=== PATIENT | female | born 1940 | race Caucasian/White ===

== ENCOUNTER 2019-02-16 09:08 | Emergency (ER) | payer MEDICARE, BC ==
[2019-02-16 09:21] VITALS: BP 142/55; PULSE 67
[2019-02-16] MEDS ORDERED: Sodium Chloride 0.9% 10 ML Syringe FLUSH PRN (09:27)
[2019-02-16] MEDS ORDERED: HYDROmorphone 0.5 MG/0.5 ML Syringe IVPUSH ONE ×2 (09:29→09:53)
--- NOTE | 2019-02-16 09:41 | EDM.PDOC ---
ED HPI GENERAL MEDICAL PROBLEM - General Chief Complaint: Upper Extremity Injury/Pain Stated Complaint: MULTI INJURY Time Seen by Provider: 02/16/19 09:19 Source of Information: Reports: Patient, Family History Limitations: Reports: No Limitations - History of Present Illness INITIAL COMMENTS - FREE TEXT/NARRATIVE: The patient got kicked by a horse in the left knee and then she fell and hit her head and hurt her right wrist. She has pain to her right wrist with deformity and pain to her left lateral knee. She also has a headache. She had no LOC. She has no neck pain. She has no chest pain, abdominal pain, nausea or vomiting. She is not on any blood thinners. Onset: Sudden Duration: Minutes: Location: Reports: Head, Upper Extremity, Right (wrist), Lower Extremity, Left ( knee) Quality: Reports: Sharp Severity: Moderate Improves with: Reports: Immobilization Worsens with: Reports: Movement Context: Reports: Trauma (Kicked by a horse in the left knee and fell and hit her head and hurt her wrist) Associated Symptoms: Reports: Headaches. Denies: Chest Pain, Cough, Fever/ Chills, Nausea/Vomiting, Shortness of Breath Right Wrist Pain Score (Numeric/FACES): 10 Left Lower Posterior Leg Pain Score (Numeric/FACES): 8 - Related Data Allergies Allergy/AdvReac Type Severity Reaction Status Date / Time amitriptyline AdvReac Hyperactivi Verified 02/16/19 09:13 ty aspirin AdvReac Tachycardia Verified 02/16/19 09:13 propoxyphene HCl AdvReac Hyperactivi Verified 02/16/19 09:13 [From Manohar] ty Home Meds: Home Meds Calcium Carbonate [Calcium] 600 mg PO DAILY 04/07/15 [History] Magnesium 500 mg PO DAILY 04/07/15 [History] Ubidecarenone [Co Q-10] 10 mg PO DAILY 04/07/15 [History] traMADol [Ultram] 50 mg PO Q6H PRN #20 tab 02/16/19 [Rx] Past Medical History Other Gastrointestinal History: colon resection Oncologic (Cancer) History: Reports: Breast, Colon, Uterine - Past Surgical History HEENT Surgical History: Reports: Cataract Surgery GI Surgical History: Reports: Colonoscopy Female Surgical History: Reports: Hysterectomy, Mastectomy Social & Family History - Tobacco Use Smoking Status *Q: Never Smoker - Caffeine Use Caffeine Use: Reports: Coffee - Recreational Drug Use Recreational Drug Use: No Review of Systems - Review of Systems Review Of Systems: See Below Constitutional: Reports: No Symptoms Eyes: Reports: No Symptoms Ears: Reports: No Symptoms Nose: Reports: No Symptoms Mouth/Throat: Reports: No Symptoms Respiratory: Reports: No Symptoms Cardiovascular: Reports: No Symptoms GI/Abdominal: Reports: No Symptoms Genitourinary: Reports: No Symptoms Musculoskeletal: Reports: Other (Pain to the left knee and right wrist) Neurological: Reports: Headache ED EXAM, GENERAL - Physical Exam Exam: See Below Exam Limited By: No Limitations General Appearance: Alert, No Apparent Distress Ears: Normal External Exam Nose: Normal Inspection Head: Atraumatic, Normocephalic Neck: Normal Inspection, Supple, Non-Tender Respiratory/Chest: No Respiratory Distress, Lungs Clear, Normal Breath Sounds Cardiovascular: Regular Rate, Rhythm, No Edema, No Murmur GI/Abdominal: Soft, Non-Tender, No Organomegaly, No Mass Back Exam: Normal Inspection Extremities: Other (Pain upon palpation with edema and ecchymosis to the left lateral knee. Pain upon palpation with slight deformity to the right wrist. Good sensation and pulses idistally.) ED TRAUMA EXTREMITY PROCEDURES - Joint Reduction Site: Other (right wrist) Sedation: Hematoma/Fracture Block Local Anesthesia - Lidocaine (Xylocaine): 1% Plain Local Anesthetic Volume: 2cc Pre-Procedure NV Status: Normal Post-Procedure NV Status: Normal Technique: Traction/Counter Traction Number of Attempts: 1 Post-Reduction Imaging: Completely Reduced Joint Reduction Complications: No - Splinting Right Upper Extremity Splint Site: Right wrist Pre-Procedure NV Status: Normal Post-Procedure NV Status: Normal Splint Material: Fiberglass Splint Design: Volar Applied & Form Fitted By: Provider Provider Post-Splint Application NV Check: NV Status Normal, Good Position Complications: No Course - Vital Signs Last Recorded V/S: Last Vital Signs Temp 97.4 F 02/16/19 09:14 Pulse 67 02/16/19 09:14 Resp 14 02/16/19 09:14 BP 142/55 H 02/16/19 09:14 Pulse Ox 100 02/16/19 09:14 - Orders/Labs/Meds Orders: Active Orders 24 hr Category Date Time Status Cardiac Monitoring [RC] . DIRECTED Care 02/16/19 09:27 Active Peripheral IV Care [RC] . DIRECTED Care 02/16/19 09:28 Active Sodium Chloride 0.9% [Saline Flush] Med 02/16/19 09:27 Active 10 ml FLUSH ASDIRECTED PRN Durable Medical Equipment for Discharge [DME for Oth 02/16/19 12:09 Ordered Discharge] [COMM] Stat Peripheral IV Insertion Adult [OM.PC] Stat Oth 02/16/19 09:27 Ordered Medication Orders Sodium Chloride (Saline Flush) 10 ml FLUSH ASDIRECTED PRN PRN Reason: Keep Vein Open Last Admin: 02/16/19 09:34 Dose: 10 ml Labs: Laboratory Tests 02/16/19 02/16/19 Range/Units 10:28 10:28 WBC 12.45 H (3.98-10.04) K/mm3 RBC 4.50 (3.98-5.22) M/mm3 Hgb 13.2 (11.2-15.7) gm/L Hct 39.2 (34.1-44.9) % MCV 87.1 (79.4-94.8) fl MCH 29.3 (25.6-32.2) pg MCHC 33.7 (32.2-35.5) g/dl RDW Std Deviation 39.2 (36.4-46.3) fL Plt Count 209 (182-369) K/mm3 MPV 10.1 (9.4-12.3) fl Neut % (Auto) 85.1 H (34.0-71.1) % Lymph % (Auto) 9.7 L (19.3-51.7) % [place] % (Auto) 4.6 L (4.7-12.5) % Eos % (Auto) 0.2 L (0.7-5.8) Baso % (Auto) 0.2 (0.1-1.2) % Neut # (Auto) 10.61 H (1.56-6.13) K/mm3 Lymph # (Auto) 1.21 (1.18-3.74) K/mm3 [place] # (Auto) 0.57 H (0.24-0.36) K/mm3 Eos # (Auto) 0.02 L (0.04-0.36) K/mm3 Baso # (Auto) 0.02 (0.01-0.08) K/mm3 Manual Slide Review Abnormal smear Sodium 140 (136-145) mEq/L Potassium 3.8 (3.5-5.1) mEq/L Chloride 104 (98-107) mEq/L Carbon Dioxide 24 (21-32) mEq/L Anion Gap 15.8 H (5-15) BUN 19 H (7-18) mg/dL Creatinine 0.9 (0.55-1.02) mg/dL Est Cr Clr Drug Dosing 44.49 mL/min Estimated GFR (MDRD) > 60 (>60) mL/min BUN/Creatinine Ratio 21.1 H (14-18) Glucose 129 H (83-115) mg/dL Calcium 9.2 (8.5-10.1) mg/dL Total Bilirubin 0.5 (0.2-1.0) mg/dL AST 24 (15-37) U/L ALT 26 (14-59) U/L Alkaline Phosphatase 97 (46-116) U/L Total Protein 6.8 (6.4-8.2) g/dl Albumin 3.8 (3.4-5.0) g/dl Globulin 3.0 gm/dL Albumin/Globulin Ratio 1.3 (1-2) Lipase 94 (73-393) U/L Meds: Medications Generic Name Dose Route Start Last Admin Trade Name Sammy PRN Reason Stop Dose Admin Sodium Chloride 10 ml 02/16/19 09:27 02/16/19 09:34 Saline Flush FLUSH 10 ml ASDIRECTED PRN Administration Keep Vein Open Discontinued Medications Generic Name Dose Route Start Last Admin Trade Name Sammy PRN Reason Stop Dose Admin Fentanyl 100 mcg 02/16/19 10:32 02/16/19 12:13 Sublimaze IVPUSH 02/16/19 10:33 Not Given ONETIME ONE Hydromorphone HCl 0.5 mg 02/16/19 09:29 02/16/19 09:33 Dilaudid IVPUSH 02/16/19 09:30 0.5 mg ONETIME ONE Administration Hydromorphone HCl 0.5 mg 02/16/19 09:53 02/16/19 10:11 Dilaudid IVPUSH 02/16/19 09:54 0.5 mg ONETIME ONE Administration Lidocaine HCl 10 ml 02/16/19 10:31 02/16/19 11:49 Xylocaine 1% INJECT 02/16/19 10:32 10 ml ONETIME ONE Administration Metoclopramide HCl 10 mg 02/16/19 11:35 02/16/19 11:43 Reglan IVPUSH 02/16/19 11:36 10 mg ONETIME ONE Administration Midazolam HCl 2 mg 02/16/19 10:31 02/16/19 11:50 Versed 1 Mg/Ml IVPUSH 02/16/19 10:32 2 mg ONETIME ONE Administration Ondansetron HCl 4 mg 02/16/19 10:46 02/16/19 10:49 Zofran IVPUSH 02/16/19 10:47 4 mg ONETIME ONE Administration Ondansetron HCl Confirm 02/16/19 10:48 02/16/19 10:52 Zofran Administered 02/16/19 10:49 Not Given Dose 4 mg .ROUTE .[facility] ONE - Re-Assessments/Exams Free Text/Narrative Re-Assessment/Exam: 02/16/19 09:41 I ordered an IV saline lock, dilaudid 0.5mg IV, labs, CT of her head, x-ray of her right wrist and left knee. 02/16/19 12:41 His WBC was elevated at 12.45. Her CT looks good. Her x-ray of the knee shows no fracture. The x-ray of her wrist shows a distal radius fracture. I did give her some more dilaudid for the pain and some reglan for nausea. I gave her some versed for sedation for reducing her fracture. 02/16/19 12:46 I put a splint on her right wrist and a knee immobilizer on her left knee. I will discharge her home with follow up with Dr Cutler. Departure - Departure Time of Disposition: 12:50 Disposition: Home, Self-Care 01 Condition: Good Clinical Impression: Contusion of left leg Qualifiers: Encounter type: initial encounter Qualified Code(s): S80.12XA - Contusion of left lower leg, initial encounter Fracture of right distal radius Qualifiers: Encounter type: initial encounter Fracture type: closed Fracture morphology: other fracture Qualified Code(s): S52.591A - Other fractures of lower end of right radius, initial encounter for closed fracture Fall Qualifiers: Encounter type: initial encounter Qualified Code(s): W19.XXXA - Unspecified fall, initial encounter Head injury Qualifiers: Encounter type: initial encounter Qualified Code(s): S09.90XA - Unspecified injury of head, initial encounter - Discharge Information *PRESCRIPTION DRUG MONITORING PROGRAM REVIEWED*: No *COPY OF PRESCRIPTION DRUG MONITORING REPORT IN PATIENT KEY: No Prescriptions: traMADol [Ultram] 50 mg PO Q6H PRN #20 tab PRN Reason: Pain Referrals: PCP,Unknown [Ordering Only Provider] - Jason Cutler MD [Physician] - 1 Week Forms: ED Department Discharge Additional Instructions: Ice the areas that hurt for 15 minutes 3 times per day for 2 days. Try to elevate your arm above your heart as much as you can for 2 days. Take tylenol or motrin for pain. If that does not help, try the ultram. Please return if you are worse. Follow up with Dr Cutler within a week. - My Orders Last 24 Hours: My Active Orders 02/16/19 09:27 Cardiac Monitoring [RC] . DIRECTED Sodium Chloride 0.9% [Saline Flush] 10 ml FLUSH ASDIRECTED PRN Peripheral IV Insertion Adult [OM.PC] Stat 02/16/19 09:28 Peripheral IV Care [RC] . DIRECTED 02/16/19 12:09 Durable Medical Equipment for Discharge [DME for Discharge] [COMM] Stat - Assessment/Plan Last 24 Hours: My Active Orders 02/16/19 09:27 Cardiac Monitoring [RC] . DIRECTED Sodium Chloride 0.9% [Saline Flush] 10 ml FLUSH ASDIRECTED PRN Peripheral IV Insertion Adult [OM.PC] Stat 02/16/19 09:28 Peripheral IV Care [RC] . DIRECTED 02/16/19 12:09 Durable Medical Equipment for Discharge [DME for Discharge] [COMM] Stat
[2019-02-16] MEDS ORDERED: Lidocaine 1% 10 ML MDV INJECT ONE (10:31)
[2019-02-16] MEDS ORDERED: Midazolam 1 MG/ML 2 ML SDV IVPUSH ONE (10:31)
[2019-02-16] MEDS ORDERED: fentaNYL 100 MCG/2 ML SDV IVPUSH ONE (10:32)
--- NOTE | 2019-02-16 10:34 | CT ---
Head CT Technique: Multiple axial sections through the brain were obtained. Intravenous contrast was not utilized. Comparison: No prior intracranial imaging is available. Findings: Ventricles along with basal cisterns and sulci over the convexities are mildly prominent. Very minimal diminished density is noted within portions of the periventricular white matter compatible with minimal small vessel ischemic demyelination change. No evidence of intracranial hemorrhage. No midline shift or mass effect is seen. Bone window settings were reviewed which shows no acute calvarial abnormality. Visualized mastoid and visualized paranasal sinuses show nothing acute. Impression: 1. Minimal senescent change. 2. Nothing acute is appreciated on noncontrast head CT exam. Diagnostic code #2
[2019-02-16] MEDS ORDERED: Ondansetron 4 MG/2 ML SDV IVPUSH ONE (10:46)
[2019-02-16] MEDS ORDERED: Ondansetron 4 MG/2 ML SDV ONE (10:48)
[2019-02-16] MEDS ORDERED: Metoclopramide 10 MG/2 ML SDV IVPUSH ONE (11:35)
--- NOTE | 2019-02-16 12:23 | CR ---
Right wrist: Four views of the right wrist were obtained. Comparison: No previous wrist exam. Distal radial fracture is seen with articular extension. Posterior impaction is seen with dorsal tilt of the distal radial articular margin. Distal ulna is intact. No additional fracture or other bony abnormality is seen. Soft tissue swelling is present. Impression: 1. Impacted distal right radial fracture with articular extension. 2. Soft tissue swelling. Diagnostic code #3
--- NOTE | 2019-02-16 12:23 | CR ---
Addendum: Exam was mismarked as right knee. This is a left knee exam. Other portions of the dictation remain the same. --- Addendum1 above dictated on [02/16/2019 12:24] by [Jane Laboy, Norbert Restrepo] --- --- Addendum1 above signed on [02/16/2019 13:00] by [Jane Laboy Hilton J.] --- --- Original report below dictated on [02/16/2019 10:56] by [Jane Laboy, Norbert Restrepo] --- --- Original report below signed on [02/16/2019 12:20] by [Jane Laboy Hilton J.] --- Right knee: Four views of the right knee were obtained. Comparison: No previous knee exam. Medial and lateral joint compartments are maintained in height. Soft tissue swelling is noted. 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 No joint effusion is seen. No acute fracture or other bony abnormality is identified. Mild vascular calcification is seen. Impression: 1. Soft tissue swelling. Other findings believed to be incidental. 2. No acute bony abnormality is identified. Diagnostic code #2 --- Addendum1 signed ---
--- NOTE | 2019-02-16 12:26 | CR ---
Right wrist: Two views of the right wrist were obtained. Comparison: Previous right wrist exam performed earlier on the same day. Less posterior impaction is seen when compared to prior study. Mild dorsal tilt of the distal radial articular margin remains. Soft tissue swelling is seen. Impression: 1. Improved alignment of previously impacted distal right radial fracture as noted above. 2. Soft tissue swelling remains. Diagnostic code #2
== END 2019-02-16 13:10 | disposition home or self-care (01) ==
LOC: JD.ED 09:08
DX: S52.591A Other fractures of lower end of right radius, initial encounter for closed fracture (principal); S09.90XA Unspecified injury of head, initial encounter; S80.12XA Contusion of left lower leg, initial encounter; Z88.6 Allergy status to analgesic agent; Z88.8 Allergy status to other drugs, medicaments and biological substances; W55.12XA Struck by horse, initial encounter
CPT/HCPCS: 25605; 36415; 70450; 73100; 73110; 73564; 80053; 83690; 85025; 96374; 96375; 96376; 99284; J1170; J2001; J2250; J2405; J2765; 29125; 99152; 99153

== ENCOUNTER 2019-02-24 06:00 | Day surgery (SDC) | payer MEDICARE, BC ==
[~2019-02-24 06:00] MED LIST: Lactated Ringers 1,000 ML IV SCH; Lidocaine 1%/Sod Bicarbonate in NS 8.4% 1 ML Syringe IDERM PRN; Scopolamine 1.5 MG Transdermal Patch TRDERM PRN; Sodium Chloride 0.9% 10 ML Syringe FLUSH PRN
[2019-02-24] MEDS ORDERED: Propofol 200 MG/20 ML SDV ONE (06:36)
[2019-02-24] MEDS ORDERED: Ondansetron 4 MG/2 ML SDV ONE (06:36)
[2019-02-24] MEDS ORDERED: Midazolam 1 MG/ML 2 ML SDV ONE (06:36)
[2019-02-24] MEDS ORDERED: fentaNYL 100 MCG/2 ML SDV ONE (06:36)
[2019-02-24] MEDS ORDERED: Lidocaine 1% 4 ML ONE (06:36)
--- NOTE | 2019-02-24 06:54 | PCM.PREANE ---
Preanesthetic Assessment - Procedure Proposed Procedure: closed reduction right arm - Anesthesia/Transfusion/Family Hx Type of Anesthesia Reaction: Excessive Somnolence, Excessive Nausea/Vomiting Family History of Anesthesia Reaction: No Transfusion History: No Prior Transfusion(s) - Review of Systems General: No Symptoms Pulmonary: No Symptoms Cardiovascular: No Symptoms, Other (leaky valve) Gastrointestinal: No Symptoms Neurological: No Symptoms Other: Reports: Depression, Anxiety - Physical Assessment NPO Status Date: 02/23/19 NPO Status Time: 19:30 Vital Signs: Last Vital Signs Temp 97.7 F 02/24/19 06:10 Pulse 62 02/24/19 06:10 Resp 16 02/24/19 06:10 BP 136/59 L 02/24/19 06:10 Pulse Ox 100 02/24/19 06:10 Height: 5 ft 5 in Weight: 58.513 kg ASA Class: 2 Mental Status: Alert & Oriented x3 Airway Class: Mallampati = 1 Dentition: Reports: Normal Dentition Thyro-Mental Finger Breadths: 3 Mouth Opening Finger Breadths: 3 ROM/Head Extension: Full Lungs: Clear to Auscultation, Normal Respiratory Effort Cardiovascular: Regular Rate, Regular Rhythm - Allergies Allergies/Adverse Reactions: Allergies Allergy/AdvReac Type Severity Reaction Status Date / Time codeine Allergy Severe Verified 02/21/19 14:44 Constipation magnesium citrate Allergy Face red Verified 02/21/19 14:44 and blotchy niacin Allergy flushing Verified 02/21/19 14:44 salicylates Allergy Severe Verified 02/21/19 14:44 Heartburn sertraline Allergy Tachycardia Verified 02/21/19 14:44 zolpidem [From Ambien] Allergy Not Listed Verified 02/21/19 14:44 amitriptyline AdvReac Hyperactivi Verified 02/16/19 09:13 ty aspirin AdvReac Tachycardia Verified 02/16/19 09:13 propoxyphene HCl AdvReac Agitation Verified 02/21/19 14:44 [From Darvon] pentaplperium mythylsulfate Allergy Hyperactivi Uncoded 02/21/19 14:44 ty - Blood Blood Available: No - Acknowledgements Anesthesia Type Planned: MAC Pt an Appropriate Candidate for the Planned Anesthesia: Yes Alternatives and Risks of Anesthesia Discussed w Pt/Guardian: Yes Pt/Guardian Understands and Agrees with Anesthesia Plan: Yes PreAnesthesia Questionnaire Cardiovascular History: Reports: High Cholesterol, Other (See Below) Other Cardiovascular History: Patient reports "leaky valve". [place] documented patient has Aortic Regurgitation. Respiratory History: Reports: None Other Gastrointestinal History: Colon Malignancy Genitourinary History: Reports: Other (See Below) Other Genitourinary History: Uterine Cancer, Cervical Malignancy Musculoskeletal History: Reports: Other (See Below) Other Musculoskeletal History: Right arm pain Psychiatric History: Reports: Depression Endocrine/Metabolic History: Reports: Osteopenia Oncologic (Cancer) History: Reports: Breast, Cervix, Colon, Uterine, Other (See Below) Other Oncologic History: Eye - Past Surgical History HEENT Surgical History: Reports: Cataract Surgery Cardiovascular Surgical History: Reports: None Respiratory Surgical History: Reports: None GI Surgical History: Reports: Colon, Colonoscopy, Other (See Below) Other GI Surgeries/Procedures: Colon Resection Female Surgical History: Reports: Breast Biopsy, Hysterectomy, Mastectomy Oncologic Surgical History: Reports: Biopsy of Breast, Mastectomy Dermatological Surgical History: Reports: None - SUBSTANCE USE Smoking Status *Q: Never Smoker Tobacco Use Within Last Twelve Months: No Second Hand Smoke Exposure: No Number of Drinks Per Day: 0 Recreational Drug Use History: No - HOME MEDS Home Medications: Home Meds Calcium Carbonate [Calcium] 600 mg PO DAILY 04/07/15 [History] Magnesium 500 mg PO DAILY 04/07/15 [History] Ubidecarenone [Co Q-10] 10 mg PO DAILY 04/07/15 [History] traMADol [Ultram] 50 mg PO Q6H PRN #20 tab 02/16/19 [Rx] Fish Oil/Prosser-3 Fatty Acids [Fish Oil 1,000 MG] 1 gm PO DAILY 02/21/19 [History ] Ibuprofen 600 mg PO Q8H PRN 02/21/19 [History] Acetaminophen [Tylenol Extra Strength] 500 mg PO ASDIRECTED PRN 02/24/19 [ History] Hydrocodone/Acetaminophen [Dixon 5-325 Tablet] 0.25 - 0.5 tab PO Q6H PRN #10 tablet 02/24/19 [Rx] - CURRENT (IN HOUSE) MEDS Current Meds: Current Medications Lactated Ringer's (Ringers, Lactated) 1,000 mls @ 125 mls/hr IV ASDIRECTED NAVID Stop: 02/24/19 23:00 Lidocaine/Sodium Bicarbonate (Buffered Lidocaine 1% In Ns 8.4%) 0.25 ml IDERM ONETIME PRN PRN Reason: Prior to IV Start Stop: 02/24/19 18:00 Scopolamine (Transderm-Scop) 1.5 mg TRDERM ONETIME PRN PRN Reason: PONV Stop: 02/24/19 18:00 Sodium Chloride (Saline Flush) 10 ml FLUSH ASDIRECTED PRN PRN Reason: Keep Vein Open Stop: 02/24/19 18:00 Discontinued Medications Fentanyl (Sublimaze) Confirm Administered Dose 100 mcg .ROUTE .STK-MED ONE Stop: 02/24/19 06:37 Lidocaine HCl (Xylocaine-Mpf 1%) Confirm Administered Dose 4 mls @ as directed .ROUTE .STK-MED ONE Stop: 02/24/19 06:37 Midazolam HCl (Versed 1 Mg/Ml) Confirm Administered Dose 2 mg .ROUTE .STK-MED ONE Stop: 02/24/19 06:37 Ondansetron HCl (Zofran) Confirm Administered Dose 4 mg .ROUTE .STK-MED ONE Stop: 02/24/19 06:37 Propofol (Diprivan 20 Ml) Confirm Administered Dose 200 mg .ROUTE .STK-MED ONE Stop: 02/24/19 06:37
[2019-02-24] MEDS ORDERED: HYDROmorphone 0.5 MG/0.5 ML Syringe IVPUSH PRN (07:47)
[2019-02-24] MEDS ORDERED: Ondansetron 4 MG/2 ML SDV IVPUSH PRN (07:47)
[2019-02-24] MEDS ORDERED: fentaNYL 100 MCG/2 ML SDV IVPUSH PRN (07:47)
--- NOTE | 2019-02-24 07:50 | PCM48HPAN ---
Post Anesthesia Note - EVALUATION WITHIN 48HRS OF ANESTHETIC Vital Signs in Normal Range: Yes Patient Participated in Evaluation: Yes Respiratory Function Stable: Yes Airway Patent: Yes Cardiovascular Function Stable: Yes Hydration Status Stable: Yes Pain Control Satisfactory: Yes (medicated- complains of pain) Nausea and Vomiting Control Satisfactory: Yes Mental Status Recovered: Yes Vital Signs: Last Vital Signs Temp 97.7 F 02/24/19 06:10 Pulse 62 02/24/19 06:10 Resp 16 02/24/19 06:10 BP 136/59 L 02/24/19 06:10 Pulse Ox 100 02/24/19 06:10 0741 128/55 98.4 54 16 100%
--- NOTE | 2019-02-24 08:28 | CR ---
Right wrist: Six fluoroscopic spot views of the right wrist were obtained. Comparison: Previous right wrist exam performed on 02/16/19. Study performed utilizing C-arm device. Fracture identified within the distal radius. Lateral view shows minimal posterior impaction. Fluoroscopy time given as 9.2 seconds. Impression: 1. Distal radial fracture with slight posterior impaction. Diagnostic code #2
[2019-02-24 13:17] VITALS: BP 116/45; PULSE 53
--- NOTE | 2019-02-28 06:39 | PCM.OPNOTE ---
- General Post-Op/Procedure Note Date of Surgery/Procedure: 02/24/19 Operative Procedure(s): closed reduction and casting of right distal radius fracture Pre Op Diagnosis: displaced right distal radius fracture Post-Op Diagnosis: Same Anesthesia Technique: MAC Primary Surgeon: Jason Cutler Anesthesia Provider: Rony Aldana Director Of Corporate Sponsorships: Umu Murdokc EBL in mLs: 0 Complications: None Condition: Good
--- NOTE | 2019-02-28 11:40 | OR ---
DATE OF OPERATION: 02/24/2019 SURGEON: Jason Cutler MD OPERATION PERFORMED: Closed reduction and casting of right distal radius fracture. PREOPERATIVE DIAGNOSIS: Displaced right distal radius fracture. POSTOPERATIVE DIAGNOSIS: Displaced right distal radius fracture. ANESTHESIA: MAC. ANESTHESIA PROVIDER: Rony Aldana CRNA. COAT MAKER: Umu Murdock PA-C. ESTIMATED BLOOD LOSS: Not applicable. COMPLICATIONS: None. CONDITION: Stable. DESCRIPTION OF PROCEDURE: The patient was identified in the preop holding area. Proper site was marked and identified by the surgeon. The patient was taken back to the operating theater, where after adequate anesthesia, the C-arm fluoroscopy showed the displaced extra-articular right distal radius fracture. At this time, longitudinal traction as well as ulnar deviation was done to correct the deformity. It was found to have a near anatomic reduction on both AP and lateral views. At this time, a short-arm cast was applied and was molded in an ulnarly deviated position. It was found to have good adequate reduction on both AP and lateral views. The patient was sent to the PACU in stable condition and will follow up in a few weeks time in clinic. MMODAL /[id number]
== END 2019-02-24 12:25 | disposition home or self-care (01) ==
LOC: JD.SDS 06:00
PROVIDERS: ATTEND Orthopaedic Surgery
DX: S52.551A Other extraarticular fracture of lower end of right radius, initial encounter for closed fracture (principal); S80.12XA Contusion of left lower leg, initial encounter; S09.90XA Unspecified injury of head, initial encounter; I35.1 Nonrheumatic aortic (valve) insufficiency; E78.00 Pure hypercholesterolemia, unspecified; F41.9 Anxiety disorder, unspecified; W55.12XA Struck by horse, initial encounter; W19.XXXA Unspecified fall, initial encounter; Z88.5 Allergy status to narcotic agent; Z88.6 Allergy status to analgesic agent; Z88.8 Allergy status to other drugs, medicaments and biological substances; Z79.899 Other long term (current) drug therapy
CPT/HCPCS: 25605; 76000; 93005; J1170; J2001; J2250; J2405; J2704; J3010; J7120; 01820